=== PATIENT | male | born 1950 | race Caucasian/White ===

== ENCOUNTER → 2016-10-26 | Outpatient (CLI) | payer MEDICARE, BC ==
[~2016-10-26] MED LIST: AMIO200T2 PO; CETI-115 PO; CHOL100018 PO; FERR-67 PO; FLUT16SP NS; LISI-661 PO; MULT-933 PO; PRAV40TA3 PO
--- NOTE | 2016-10-26 10:03 | DI ---
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 Approximately 60 minutes later 3D PET/CT imaging was performed from the skull base through the mid thighs. The CT images are for attenuation correction purposes only. Findings: No abnormal metabolic activity seen within the skull base. Metallic artifact from prior dental restorations. Continued metabolic uptake around the vocal cords, somewhat prior study of uncertain clinical significance. No metabolically active pulmonary nodules or masses. Left-sided spinal fusion leo again noted extending through the chest causing artifact. No metabolically active axillary or mediastinal adenopathy. New diffuse skeletal uptake seen which could be due to therapy. This is most pronounced in the lower thoracic and upper lumbar spine. Previously seen liver metastases do not show any increased FDG uptake above background currently. The other area of increased uptake in the gastrohepatic space is no longer identified. Expected genitourinary and bowel uptake. No active adenopathy or mass seen within the abdomen or pelvis. Impression: Interval resolution of the FDG avid lesions in the liver consistent with response to therapy. No new metastatic disease seen. .
== END ==
LOC: IMA 07:07
PROVIDERS: ATTEND Internal Medicine Medical Oncology
DX: C7A.1 Malignant poorly differentiated neuroendocrine tumors (principal); C16.2 Malignant neoplasm of body of stomach; C7A.092 Malignant carcinoid tumor of the stomach
CPT/HCPCS: 78815; A9552